=== PATIENT | male | born 1975 | race Native Hawaiian/Other Pacific Islander ===

== ENCOUNTER 2021-07-08 14:12 | Outpatient (CLI) | payer BC | END 2021-07-08 19:01 | disposition home or self-care (01) | LOC: RAD 14:12 | PROVIDERS: ATTEND Physician Assistant | DX: M25.561 Pain in right knee (principal) ==

== ENCOUNTER 2021-08-16 14:47 | Outpatient (CLI) | payer BC | END 2021-08-16 21:20 | disposition home or self-care (01) | LOC: MRI 14:47 | PROVIDERS: ATTEND Pain Medicine Interventional Pain Medicine | DX: M54.17 Radiculopathy, lumbosacral region (principal) ==